=== PATIENT | female | born 1985 | race Caucasian/White ===

== ENCOUNTER 2022-01-30 13:21 | Emergency (ER) | payer OTHER ==
[2022-01-30 13:48] LABS: BILIRUBIN,URINE NEGATIVE (NEGATIVE); GLUCOSE, URINE (UA) NEGATIVE (NEGATIVE); KETONES,URINE (UA) NEGATIVE (NEGATIVE); LEUKOCYTE ESTERASE, URINE NEGATIVE (NEGATIVE); NITRITE,URINE NEGATIVE (NEGATIVE); OCCULT BLOOD,URINE NEGATIVE (NEGATIVE); PROTEIN,URINE NEGATIVE (NEGATIVE); UROBILINOGEN,URINE 0.2 (NORMAL) E.U./dL (NORMAL)
[2022-01-30 13:50] LABS: CLARITY,URINE CLEAR (CLEAR); HCG UR QUAL NEGATIVE
[2022-01-30 14:00] LABS: BASOPHILS # (AUTO) 0.1 10^3/uL (0.0-0.1); BASOPHILS % (AUTO) 0.8 %; EOSINOPHILS % (AUTO) 0.3 %; LYMPHOCYTES # (AUTO) 1.8 10^3/uL (1.5-3.5); LYMPHOCYTES % (AUTO) 23.5 %; MEAN CORPUSCULAR HGB CONC 30.3 g/dL (32.0-36.0); MEAN CORPUSCULAR VOLUME 72.7 fL (81.0-99.0); MEAN PLATELET VOLUME 10.6 fL (7.9-10.8); MONOCYTES # (AUTO) 0.5 10^3/uL (0.0-1.0); MONOCYTES % (AUTO) 6.8 %; NEUTROPHILS # (AUTO) 5.3 10^3/uL (1.5-6.6); NEUTROPHILS % (AUTO) 68.3 %; PLT - PLATELET COUNT 326 10^3/uL (130-450); RED BLOOD COUNT 4.54 10^6/uL (4.20-5.40); RED CELL DISTRIBUTION WIDTH 17.6 % (12.0-15.0); WHITE BLOOD COUNT 7.8 x10^3/uL (4.8-10.8)
[2022-01-30 14:10] LABS: ALBUMIN 4.5 g/dL (3.2-5.5); ALBUMIN/GLOBULIN RATIO 1.3 (1.0-2.2); BILIRUBIN,TOTAL 0.6 mg/dL (0.2-1.0); CREATININE 0.7 mg/dL (0.4-1.0); POTASSIUM 3.9 mmol/L (3.5-5.0)
[2022-01-30 16:30] VITALS: BP 124/61
--- NOTE | 2022-01-30 17:34 | ED Physician Documentation ---
History of Present Illness - Stated complaint Stated Complaint: LT SIDE PX - Chief complaint Chief Complaint: Abd Pain - Additonal information Additional information: 36-year-old female presents emergency department for evaluation of about 1 month left lower back pain. She endorses pain that sometimes radiates into the leg. No fevers, falls or trauma. No saddle anesthesia loss of bowel or bladder function. She typically takes Tylenol which helps but today it was less effective thus she presents here. My history is different than the triage note which indicates that the patient was reporting abdominal pain not back pain. She denies any abdominal pain for me Review of Systems Constitutional: reports: Reviewed and negative Ears: reports: Reviewed and negative Throat: reports: Reviewed and negative Cardiac: reports: Reviewed and negative Respiratory: reports: Reviewed and negative Skin: reports: Reviewed and negative Musculoskeletal: reports: Back pain Neurologic: reports: Reviewed and negative Psychiatric: reports: Reviewed and negative Endocrine: reports: Reviewed and negative PD PAST MEDICAL HISTORY - Past Medical History Past Medical History: Yes - Allergies Allergies/Adverse Reactions: Allergies Allergy/AdvReac Type Severity Reaction Status Date / Time No Known Drug Allergies Allergy Verified 01/30/22 13:29 - Social History Does the pt smoke?: No Smoking Status: Never smoker Does the pt drink ETOH?: Yes Does the pt have substance abuse?: No - Immunizations Immunizations are current?: Yes - POLST Patient has POLST: No PD ED PE NORMAL - General General: Alert and oriented X 3, No acute distress - HEENT HEENT: Atraumatic - Neck Neck: Supple, no meningeal sign - Cardiac Cardiac: RRR, No murmur - Respiratory Respiratory: No respiratory distress, Clear bilaterally - Abdomen Abdomen: Normal bowel sounds, Soft, Non tender - Back Back: No CVA TTP, No spinal TTP, Other (Tenderness in the lower left SI region. Motor strength 5 of 5 bilateral lower extremities at hips, knees and ankles. No paresthesias. 2+ patellar reflexes. Normal gait. Positive straight leg exam left leg.) Results - Vitals Vitals: Vital Signs - 24 hr 01/30/22 01/30/22 13:25 16:29 Temperature 36.5 C 36.4 C L Heart Rate 72 77 Respiratory 16 16 Rate Blood Pressure 126/66 124/61 O2 Saturation 100 100 Oxygen O2 Source Room air - Labs Labs: Laboratory Tests 01/30/22 01/30/2222 13:40 13:54 13:54 WBC 7.8 RBC 4.54 Hgb 10.0 L Hct 33.0 L MCV 72.7 L MCH 22.0 L MCHC 30.3 L RDW 17.6 H Plt Count 326 MPV 10.6 Neut # (Auto) 5.3 Lymph # (Auto) 1.8 [place] # (Auto) 0.5 Eos # (Auto) 0.0 Baso # (Auto) 0.1 Absolute Nucleated RBC 0.00 Nucleated RBC % 0.0 Sodium 139 Potassium 3.9 Chloride 103 Carbon Dioxide 27 Anion Gap 9.0 BUN 11 Creatinine 0.7 Estimated GFR (MDRD) 94 Glucose 97 Calcium 10.0 Total Bilirubin 0.6 AST 18 ALT 14 Alkaline Phosphatase 41 L Total Protein 8.0 Albumin 4.5 Globulin 3.5 Albumin/Globulin Ratio 1.3 Lipase 35 Urine Color YELLOW Urine Clarity CLEAR Urine pH 6.0 Ur Specific [place] <=1.005 Urine Protein NEGATIVE Urine Glucose (UA) NEGATIVE Urine Ketones NEGATIVE Urine Occult Blood NEGATIVE Urine Nitrite NEGATIVE Urine Bilirubin NEGATIVE Urine Urobilinogen 0.2 (NORMAL) Ur Leukocyte Esterase NEGATIVE Ur Microscopic Review NOT INDICATED Urine Culture Comments NOT INDICATED Urine HCG, Qual NEGATIVE PD MEDICAL DECISION MAKING - ED course Complexity details: reviewed results, re-evaluated patient, considered differential, d/w patient ED course: Well-appearing 28-year-old female presents emergency department for evaluation of intermittent left low back pain that has typically responded to Tylenol But it was less effective today. Her exam is very reassuring. She has preserved motor strength reflexes and function. No red flags. She did have a positive straight leg exam making me suspicious for sciatica. Given this I am recommending Tylenol sciatica exercises as well as follow-up with primary care doctor for consideration of referral to PT. I did not elicit any abdominal flank or CVA tenderness. Her screening labs are essentially unremarkable. Emergent and worrisome return precautions discussed Departure - Departure Disposition: 01 Home, Self Care Clinical Impression: Left-sided low back pain with sciatica Qualifiers: Chronicity: acute Sciatica laterality: sciatica of left side Qualified Code(s): M54.42 - Lumbago with sciatica, left side Condition: Stable Record reviewed to determine appropriate education?: Yes Instructions: ED Sciatica Comments: You are seen today for pain in the left lower portion of your back that has come and gone for about 1 month. As we discussed at the bedside your history and exam is most consistent with sciatica. I do recommend that you have very close follow-up with your primary care doctor for consideration of referral to physical therapy. In general sciatica will respond well to medications like ibuprofen. Therefore I do recommend you take 600 mg of ibuprofen with food once or twice daily for your back pain. Please google sciatica stretching exercises. Many people will find relief of the pain by doing these stretches. If at any point you find that you have numbness or weakness in the leg, lose control of your bowel or bladder function or have numbness in your genital area then please return immediately to the ER for second evaluation.
== END 2022-01-30 17:45 | disposition home or self-care (01) ==
LOC: ED 13:21
DX: M54.42 Lumbago with sciatica, left side (principal)
CPT/HCPCS: 36415; 80053; 81001; 81003; 81025; 83690; 85025; 87086; 99283

== ENCOUNTER 2022-02-04 | Emergency (ER) | payer OTHER ==
[2022-02-04 00:32] LABS: BASOPHILS # (AUTO) 0.1 10^3/uL (0.0-0.1); BASOPHILS % (AUTO) 0.7 %; EOSINOPHILS # (AUTO) 0.1 10^3/uL (0.0-0.7); EOSINOPHILS % (AUTO) 0.7 %; HCT - HEMATOCRIT 32.3 % (37.0-47.0); HGB - HEMOGLOBIN 9.6 g/dL (12.0-16.0); LYMPHOCYTES # (AUTO) 2.4 10^3/uL (1.5-3.5); MEAN CORPUSCULAR HEMOGLOBIN 21.8 pg (27.0-31.0); MEAN CORPUSCULAR HGB CONC 29.7 g/dL (32.0-36.0); MEAN CORPUSCULAR VOLUME 73.4 fL (81.0-99.0); MEAN PLATELET VOLUME 11.1 fL (7.9-10.8); MONOCYTES # (AUTO) 0.6 10^3/uL (0.0-1.0); MONOCYTES % (AUTO) 8.4 %; NEUTROPHILS # (AUTO) 3.9 10^3/uL (1.5-6.6); NEUTROPHILS % (AUTO) 55.9 %; PLT - PLATELET COUNT 286 10^3/uL (130-450); RED CELL DISTRIBUTION WIDTH 17.5 % (12.0-15.0)
[2022-02-04 00:38] LABS: BILIRUBIN,URINE NEGATIVE (NEGATIVE); GLUCOSE, URINE (UA) NEGATIVE (NEGATIVE); KETONES,URINE (UA) NEGATIVE (NEGATIVE); LEUKOCYTE ESTERASE, URINE NEGATIVE (NEGATIVE); NITRITE,URINE NEGATIVE (NEGATIVE); OCCULT BLOOD,URINE TRACE-INTA (NEGATIVE); PROTEIN,URINE NEGATIVE (NEGATIVE); UROBILINOGEN,URINE 0.2 (NORMAL) E.U./dL (NORMAL)
[2022-02-04 00:39] LABS: CLARITY,URINE CLEAR (CLEAR)
[2022-02-04 00:41] LABS: HCG UR QUAL NEGATIVE
[2022-02-04 00:45] LABS: ALBUMIN 4.4 g/dL (3.2-5.5); ALBUMIN/GLOBULIN RATIO 1.5 (1.0-2.2); BILIRUBIN,TOTAL 0.3 mg/dL (0.2-1.0); CALCIUM 9.6 mg/dL (8.5-10.3); CREATININE 0.8 mg/dL (0.4-1.0); POTASSIUM 3.4 mmol/L (3.5-5.0); TOTAL PROTEIN 7.4 g/dL (6.7-8.2)
[2022-02-04] MEDS ORDERED: KETOROLAC 30 MG/ML VIAL IVP STA (01:45)
[2022-02-04] MEDS ORDERED: TAMSULOSIN 0.4 MG CAPSULE PO STA (03:04)
--- NOTE | 2022-02-04 03:07 | ED Physician Documentation ---
PD HPI ABD PAIN - Stated complaint Stated Complaint: R BACK/ABD PX - Chief complaint Chief Complaint: Abd Pain - Additional information Additional information: Patient is a 37-year-old female presenting to the emergency department with left-sided low back and flank pain. Seen here 01/30. At that time was having acute onset of pain radiating down the left leg. Diagnosed with sciatica. Reports has been having persistent pain that now radiates around the front of her abdomen and radiates down into her groin. Reports frequent urination but denies any blood in urine. Denies any known history kidney stone. Denies for any fever, chills, chest pain, shortness of breath, saddle paresthesias, Incontinence of urine or stool or weakness in her lower extremities. Review of Systems Ten Systems: 10 systems reviewed and negative Constitutional: denies: Fever Eyes: denies: Loss of vision Ears: denies: Loss of hearing Nose: denies: Rhinorrhea / runny nose Throat: denies: Dental pain / toothache Cardiac: denies: Chest pain / pressure Respiratory: denies: Dyspnea GI: denies: Abdominal Pain : reports: Frequency. denies: Dysuria, Hesitancy, Unable to Void, Incontinent, Hematuria, Discharge Musculoskeletal: reports: Back pain PD PAST MEDICAL HISTORY - Past Medical History Past Medical History: Yes - Past Surgical History Past Surgical History: Yes HEENT: Tonsil/Adenoidectomy - Present Medications Home Medications: Ambulatory Orders Medication Instructions Recorded Confirmed Acetaminophen [Acetaminophen Extra 500 mg PO Q8HR #30 tablet 02/04/22 Strength] Ibuprofen [Motrin] 1 tablet PO Q8H PRN #30 tablet 02/04/22 - Allergies Allergies/Adverse Reactions: Allergies Allergy/AdvReac Type Severity Reaction Status Date / Time No Known Drug Allergies Allergy Verified 02/04/22 00:18 - Social History Does the pt smoke?: No Smoking Status: Never smoker Does the pt drink ETOH?: Yes Does the pt have substance abuse?: No - Immunizations Immunizations are current?: Yes - POLST Patient has POLST: No PD ED PE NORMAL - Vitals Vital signs reviewed: Yes - General General: Alert and oriented X 3 - HEENT HEENT: Atraumatic, PERRL, EOMI, Ears normal - Neck Neck: Supple, no meningeal sign - Cardiac Cardiac: RRR, No gallop - Respiratory Respiratory: No respiratory distress, Clear bilaterally - Abdomen Abdomen: Normal bowel sounds, Non tender, Other (Negative for CVA tenderness.) - Back Back: No CVA TTP, No spinal TTP, Other (Negative straight leg raise bilaterally.) Results - Vitals Vitals: Vital Signs - 24 hr 02/04/22 02/04/22 02/04/22 00:14 01:50 02:08 Temperature 36.5 C 37.0 C Heart Rate 82 93 82 Respiratory 16 16 16 Rate Blood Pressure 129/76 138/85 H 103/86 H O2 Saturation 100 100 100 02/04/22 03:19 Temperature 36.9 C Heart Rate 71 Respiratory 16 Rate Blood Pressure 118/79 O2 Saturation 100 Oxygen O2 Source Room air - Labs Labs: Laboratory Tests 02/04/22 02/04/22 02/04/22 00:26 00:26 00:27 WBC 7.0 RBC 4.40 Hgb 9.6 L Hct 32.3 L MCV 73.4 L MCH 21.8 L MCHC 29.7 L RDW 17.5 H Plt Count 286 MPV 11.1 H Neut # (Auto) 3.9 Lymph # (Auto) 2.4 [place] # (Auto) 0.6 Eos # (Auto) 0.1 Baso # (Auto) 0.1 Absolute Nucleated RBC 0.00 Nucleated RBC % 0.0 Sodium Potassium Chloride Carbon Dioxide Anion Gap BUN Creatinine Estimated GFR (MDRD) Glucose Calcium Total Bilirubin AST ALT Alkaline Phosphatase Total Protein Albumin Globulin Albumin/Globulin Ratio Lipase Urine Color YELLOW Urine Clarity CLEAR Urine pH 6.0 Ur Specific [place] 1.010 Urine Protein NEGATIVE Urine Glucose (UA) NEGATIVE Urine Ketones NEGATIVE Urine Occult Blood TRACE-INTA Urine Nitrite NEGATIVE Urine Bilirubin NEGATIVE Urine Urobilinogen 0.2 (NORMAL) Ur Leukocyte Esterase NEGATIVE Ur Microscopic Review NOT INDICATED Urine Culture Comments NOT INDICATED Urine HCG, Qual NEGATIVE 02/04/22 00:27 WBC RBC Hgb Hct MCV MCH MCHC RDW Plt Count MPV Neut # (Auto) Lymph # (Auto) [place] # (Auto) Eos # (Auto) Baso # (Auto) Absolute Nucleated RBC Nucleated RBC % Sodium 137 Potassium 3.4 L Chloride 104 Carbon Dioxide 26 Anion Gap 7.0 BUN 15 Creatinine 0.8 Estimated GFR (MDRD) 80 L Glucose 98 Calcium 9.6 Total Bilirubin 0.3 AST 20 ALT 17 Alkaline Phosphatase 53 Total Protein 7.4 Albumin 4.4 Globulin 3.0 Albumin/Globulin Ratio 1.5 Lipase 38 Urine Color Urine Clarity Urine pH Ur Specific [place] Urine Protein Urine Glucose (UA) Urine Ketones Urine Occult Blood Urine Nitrite Urine Bilirubin Urine Urobilinogen Ur Leukocyte Esterase Ur Microscopic Review Urine Culture Comments Urine HCG, Qual PD MEDICAL DECISION MAKING - ED course Complexity details: reviewed results ED course: Patient is 37-year-old female presenting to the emergency department with left- sided flank pain. Afebrile, hemodynamic stable on arrival to the emergency department. No CVA tenderness. No tenderness to palpation along the lumbar thoracic spine. Was unable to elicit classic sciatica symptoms with straight leg raise. Comprehensive labs obtained demonstrated generally normal results unchanged from her previous ER evaluation. Given that her pain is now radiating down into her groin I did obtain a noncontrast CT of the abdomen pelvis which demonstrated nonobstructing left-sided kidney stones as well as a small calcification likely now in the urinary bladder. Patient was given a dose of Toradol in the emergency department and on reevaluation after returning from CT reported that her symptoms had resolved. I think that it is very likely that she has been suffering from nephrolithiasis and is now passed this stone. I will discharge at this time with instructions for regular alternating Motrin and Tylenol at home for symptomatic management. Will encourage careful follow- up with primary care. Otherwise clear return precautions and follow-up instructions given prior to discharge. Departure - Departure Disposition: 01 Home, Self Care Clinical Impression: Flank pain Prescriptions: Acetaminophen [Acetaminophen Extra Strength] 500 mg PO Q8HR #30 tablet Ibuprofen [Motrin] 1 tablet PO Q8H PRN #30 tablet PRN Reason: PAIN &/OR FEVER Comments: Thank you for allowing us to care for you today at [facility]. In the emergency department this evening you were evaluated for any possible life-threatening medical emergency. I am concerned that the cause of your symptoms may be due to a kidney stone which is either passed recently or may be about to pass. The remainder of your tests are all very reassuring. I do appreciate your patience with us this evening. Formal reads from our evening radiologist are often delayed however I have asked them to review your CT scan. This report should be available later on this morning. As we discussed I like you to drink plenty of fluids over the course of the next few days. Ideally he will be having clear or nearly clear urination every 2-4 hours while awake. I recommend regular alternating doses of Tylenol and Motrin. A regimen to consider is 500 mg of Tylenol to start with, alternating with 800 mg of Motrin every 4 hours while awake. Please make a follow-up appointment with your primary care doctor as soon as possible. If it anytime you have any new or worsening symptoms please not hesitate to return to the emergency department. Discharge Date/Time: 02/04/22 03:22
[2022-02-04 03:20] VITALS: BP 118/79
--- NOTE | 2022-02-04 08:25 | CT Report ---
PROCEDURE: Abdomen/Pelvis WO INDICATIONS: left flank pain TECHNIQUE: Noncontrast 5 mm thick sections acquired from the diaphragms to the symphysis. 5 mm coronal and sagi ttal reformats were then performed. For radiation dose reduction, the following was used: automated exposure control, adjustment of mA and/or kV according to patient size. COMPARISON: None. FINDINGS: Image quality: Excellent. ABDOMEN: Lung bases: Lung bases are clear. Heart size is normal. Solid organs: Liver and spleen are normal in size. Gallbladder is normal Pancreas is normal in con tours. No adrenal nodules. Kidneys are normal in size, without hydronephrosis. There are punctate calcifications in left kidney compatible with nonobstructive stones. 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 Peritoneum and bowel: Unenhanced bowel loops demonstrate normal wall thickness and caliber. There i s a large amount of stool in colon. No free fluid or air. Nodes and vessels: No retroperitoneal or mesenteric adenopathy by size criteria. Aorta and inferior vena cava are normal in caliber. Miscellaneous: No ventral hernias. PELVIS: Genitourinary: Calcification in the left pelvis is most likely a phlebolith. Bladder wall thickness is normal. Uterus and ovaries are unremarkable. Miscellaneous: No inguinal hernias or adenopathy. Bones: No suspicious bony lesions. No vertebral body compression fractures. IMPRESSION: 1. There are nonobstructive left renal calculi. No hydronephrosis. 2. 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 3. A large amount of stool in colon. No significant discrepancy with the preliminary interpretation. Reviewed by: Knadi Rincon MD on 02/04/2022 8:24 AM PDT Approved by: Kandi Rincon MD on 02/04/2022 8:24 AM PDT Station ID: [id number]
== END 2022-02-04 03:22 | disposition home or self-care (01) ==
LOC: ED
DX: N20.0 Calculus of kidney (principal); R10.9 Unspecified abdominal pain
CPT/HCPCS: 36415; 74176; 80053; 81003; 81025; 83690; 85025; 99284; A9270; 81001; 87086

== ENCOUNTER 2022-07-10 17:12 | Emergency (ER) | payer OTHER ==
[2022-07-10 17:36] LABS: BILIRUBIN,URINE NEGATIVE (NEGATIVE); GLUCOSE, URINE (UA) NEGATIVE (NEGATIVE); KETONES,URINE (UA) NEGATIVE (NEGATIVE); LEUKOCYTE ESTERASE, URINE NEGATIVE (NEGATIVE); NITRITE,URINE NEGATIVE (NEGATIVE); OCCULT BLOOD,URINE TRACE-INTA (NEGATIVE); PH,URINE 6.5 PH (5.0-7.5); PROTEIN,URINE NEGATIVE (NEGATIVE); UROBILINOGEN,URINE 0.2 (NORMAL) E.U./dL (NORMAL)
[2022-07-10 17:37] LABS: BASOPHILS # (AUTO) 0.1 10^3/uL (0.0-0.1); BASOPHILS % (AUTO) 0.6 %; EOSINOPHILS % (AUTO) 0.4 %; HCT - HEMATOCRIT 33.2 % (37.0-47.0); HGB - HEMOGLOBIN 9.6 g/dL (12.0-16.0); LYMPHOCYTES # (AUTO) 1.8 10^3/uL (1.5-3.5); MEAN CORPUSCULAR HEMOGLOBIN 21.2 pg (27.0-31.0); MEAN CORPUSCULAR HGB CONC 28.9 g/dL (32.0-36.0); MEAN CORPUSCULAR VOLUME 73.5 fL (81.0-99.0); MEAN PLATELET VOLUME 11.4 fL (7.9-10.8); MONOCYTES # (AUTO) 0.5 10^3/uL (0.0-1.0); MONOCYTES % (AUTO) 5.7 %; NEUTROPHILS # (AUTO) 6.6 10^3/uL (1.5-6.6); PLT - PLATELET COUNT 279 10^3/uL (130-450); RED BLOOD COUNT 4.52 10^6/uL (4.20-5.40)
[2022-07-10 17:38] LABS: CLARITY,URINE CLEAR (CLEAR); HCG UR QUAL NEGATIVE
[2022-07-10 17:50] LABS: ALBUMIN 4.3 g/dL (3.2-5.5); ALBUMIN/GLOBULIN RATIO 1.3 (1.0-2.2); BILIRUBIN,TOTAL 0.6 mg/dL (0.2-1.0); CALCIUM 9.5 mg/dL (8.5-10.3); CREATININE 0.7 mg/dL (0.4-1.0); POTASSIUM 3.8 mmol/L (3.5-5.0); TOTAL PROTEIN 7.7 g/dL (6.7-8.2)
--- NOTE | 2022-07-10 17:53 | ED Physician Documentation ---
PD HPI ABD PAIN - Stated complaint Stated Complaint: ABD PX - Chief complaint Chief Complaint: Abd Pain - History obtained from History obtained from: Patient - Additional information Additional information: Previously healthy 37-year-old woman with history of D&C in 2003, otherwise healthy presents with 2 months of lower abdominal pain, cramping and bloating. She states that every night she develops bloating, lower abdominal cramping and diarrhea as well as gas that smells foul. Imodium is helpful. Prior to 2 months ago she had never had anything like this before. No history of colonoscopy. Review of Systems Constitutional: denies: Fever, Chills GI: reports: Abdominal Pain, Nausea, Diarrhea. denies: Vomiting, Constipation, Hematemesis, Bloody / black stool PD PAST MEDICAL HISTORY - Past Surgical History Past Surgical History: Yes HEENT: Tonsil/Adenoidectomy - Present Medications Home Medications: Ambulatory Orders Medication Instructions Recorded Confirmed Acetaminophen [Acetaminophen Extra 500 mg PO Q8HR #30 tablet 02/04/22 Strength] Ibuprofen [Motrin] 1 tablet PO Q8H PRN #30 tablet 02/04/22 Dicyclomine [Bentyl] 1 - 2 tab PO QID PRN #20 cap 07/10/22 - Allergies Allergies/Adverse Reactions: Allergies Allergy/AdvReac Type Severity Reaction Status Date / Time No Known Drug Allergies Allergy Verified 02/04/22 00:18 - Social History Does the pt smoke?: No Smoking Status: Never smoker Does the pt drink ETOH?: Yes Does the pt have substance abuse?: No - Immunizations Immunizations are current?: Yes - POLST Patient has POLST: No PD ED PE NORMAL - Vitals Vital signs reviewed: Yes - General General: Alert and oriented X 3, No acute distress - Cardiac Cardiac: RRR, No murmur - Respiratory Respiratory: No respiratory distress, Clear bilaterally - Abdomen Abdomen: Normal bowel sounds, Soft, Non tender, Non distended, No organomegaly - Derm Derm: Normal color, Warm and dry - Extremities Extremities: No edema, No calf tenderness / cord - Neuro Neuro: Alert and oriented X 3, Normal speech Eye Opening: Spontaneous Motor: Obeys Commands Verbal: Oriented GCS Score: 15 - Psych Psych: Normal mood, Normal affect Results - Vitals Vitals: Vital Signs - 24 hr 07/10/22 17:17 Temperature 37.2 C Heart Rate 72 Respiratory 16 Rate Blood Pressure 141/77 H O2 Saturation 100 Oxygen O2 Source Room air - Labs Labs: Laboratory Tests 07/10/22 07/10/22 07/10/22 17:28 17:32 17:32 WBC 9.0 RBC 4.52 Hgb 9.6 L Hct 33.2 L MCV 73.5 L MCH 21.2 L MCHC 28.9 L RDW 19.0 H Plt Count 279 MPV 11.4 H Neut # (Auto) 6.6 Lymph # (Auto) 1.8 [place] # (Auto) 0.5 Eos # (Auto) 0.0 Baso # (Auto) 0.1 Absolute Nucleated RBC 0.00 Nucleated RBC % 0.0 Manual Slide Review Indicated Platelet Estimate NORMAL (130-450,000) Platelet Morphology NORMAL APPEARANCE RBC Morph Micro Appear 1+ OVALOCYTES Sodium 138 Potassium 3.8 Chloride 103 Carbon Dioxide 27 Anion Gap 8.0 BUN 11 Creatinine 0.7 Estimated GFR (MDRD) 93 Glucose 98 Calcium 9.5 Total Bilirubin 0.6 AST 20 ALT 15 Alkaline Phosphatase 41 L Total Protein 7.7 Albumin 4.3 Globulin 3.4 Albumin/Globulin Ratio 1.3 Lipase 38 Urine Color YELLOW Urine Clarity CLEAR Urine pH 6.5 Ur Specific [place] 1.010 Urine Protein NEGATIVE Urine Glucose (UA) NEGATIVE Urine Ketones NEGATIVE Urine Occult Blood TRACE-INTA Urine Nitrite NEGATIVE Urine Bilirubin NEGATIVE Urine Urobilinogen 0.2 (NORMAL) Ur Leukocyte Esterase NEGATIVE Ur Microscopic Review NOT INDICATED Urine Culture Comments NOT INDICATED Urine HCG, Qual NEGATIVE - Rads (name of study) CT abdomen pelvis with IV contrast is unremarkable Radiology: Final report received, EMP read indepedently PD Medical Decision Making - ED course Complexity details: reviewed results (CBC is reviewed, she has a microcytic anemia with a hemoglobin exactly the same as it was 4 months ago on prior labs. Comprehensive metabolic panel was reviewed and normal. Urinalysis reviewed and normal. Urine test is negative.) ED course: 37-year-old woman presents with 2 months of lower abdominal pain, diarrhea, bloating, cramping. Differential diagnosis includes irritable bowel syndrome, inflammatory bowel disease, tumor, small bowel overgrowth. Less likely would be a surgical emergency given the time course and benign exam. Departure - Departure Disposition: 01 Home, Self Care Clinical Impression: Diarrhea Qualifiers: Diarrhea type: unspecified type Qualified Code(s): R19.7 - Diarrhea, unspecified Abdominal pain Qualifiers: Abdominal location: lower abdomen, unspecified Qualified Code(s): R10.30 - Lower abdominal pain, unspecified Condition: Good Record reviewed to determine appropriate education?: Yes Instructions: ED Abdominal Pain Female Non-Specific Abdominal Pain Prescriptions: Dicyclomine [Bentyl] 1 - 2 tab PO QID PRN #20 cap PRN Reason: Abdominal Pain Comments: Your CAT scan and labs are normal. With the exception of moderate anemia which has been chronic over prior labs that we have seen. You may want to take an [id number] iron supplement as the pattern is consistent with iron deficiency which is common in young women. Given your symptoms I would recommend starting with a "low FODMAP diet" you can easily google what this is, but basically it cuts out carbohydrates that cause diarrhea cramping and bloating. In the meantime I am trialing a antispasmodic agent known as dicyclomine/Bentyl. Call your doctor to arrange a follow-up appointment, make the next available appointment. In the interim, return anytime if worse or if new symptoms develop.
[2022-07-10 18:07] LABS: PLATELET ESTIMATE, MANUAL NORMAL (130-450,000) (NORMAL); PLATELET MORPHOLOGY NORMAL APPEARANCE (NORMAL); SLIDE REVIEW? Indicated
[2022-07-10] MEDS ORDERED: iohexoL-300 100 ML VIAL ONE (18:17)
--- NOTE | 2022-07-10 19:12 | CT Report ---
PROCEDURE: ABDOMEN/PELVIS W INDICATIONS: iv only, low abd pain CONTRAST: 100mL Omni 300 TECHNIQUE: After the administration of contrast, 5 mm thick sections acquired from the diaphragms to the symphy sis. 5 mm thick coronal and sagittal reformats were acquired. For radiation dose reduction, the fol lowing was used: automated exposure control, adjustment of mA and/or kV according to patient size. COMPARISON: None. FINDINGS: Image quality: Excellent. ABDOMEN: Lung bases: Lung bases are clear. Heart size is normal. Solid organs: Liver and spleen are normal in size and enhancement. Gallbladder is normal. Biliary system is non dilated. Pancreas enhances normally. No adrenal nodules. Kidneys demonstrate normal size and enhancement, without hydronephrosis. Peritoneum and bowel: Bowel loops demonstrate normal wall thickness and caliber. No free fluid or a ir. Nodes and vessels: No retroperitoneal or mesenteric adenopathy by size criteria. Aorta and inferior vena cava are normal in size. Miscellaneous: No ventral hernias. PELVIS: Genitourinary: Bladder wall thickness is normal. Miscellaneous: No inguinal hernias or adenopathy. Bones: No suspicious bony lesions. No vertebral body compression fractures. IMPRESSION: No acute abdominal or pelvic abnormality. Reviewed by: Doc Gaytan on 07/10/2022 7:10 PM PST Approved by: Doc Gaytan on 07/10/2022 7:10 PM PST Station ID: [id number]
[2022-07-10 19:23] VITALS: BP 131/83
[2022-07-10] MEDS ORDERED: iohexoL-300 100 ML VIAL IVP ONE (19:37)
== END 2022-07-10 19:27 | disposition home or self-care (01) ==
LOC: ED 17:12
DX: R10.30 Lower abdominal pain, unspecified (principal); R19.7 Diarrhea, unspecified
CPT/HCPCS: 36415; 74177; 80053; 81003; 81025; 83690; 85025; 99284; Q9967; 81001; 87086

== ENCOUNTER 2022-11-08 07:33 | Emergency (ER) | payer OTHER ==
[2022-11-08 08:13] LABS: RAPID STREP SCREEN Negative (Negative)
--- NOTE | 2022-11-08 08:13 | ED Physician Documentation ---
PD HPI URI - Stated complaint Stated Complaint: FEVER,COUGH - Chief complaint Chief Complaint: Heent - History obtained from History obtained from: Patient - Additional information Additional information: Patient is a 37-year-old female with no significant prior medical history presenting for evaluation of fever, nonproductive cough and sore throat for the past 4 days. She reports a Tmax of 102 which was present this morning. She took Tylenol at 5 AM. She reports a sore throat and cough without any phlegm. Her son was ill last week with pinkeye and cough as well as congestion but he has recovered. She did take a home COVID test which was negative.She denies recent travel. She denies chest pain or feeling short of breath. Denies abdominal symptoms or concerns for . Review of Systems Constitutional: reports: Fever Throat: reports: Sore throat Cardiac: denies: Chest pain / pressure Respiratory: reports: Cough. denies: Dyspnea GI: denies: Abdominal Pain, Vomiting Musculoskeletal: denies: Extremity swelling PD PAST MEDICAL HISTORY - Past Surgical History Past Surgical History: Yes HEENT: Tonsil/Adenoidectomy - Present Medications Home Medications: Ambulatory Orders Medication Instructions Recorded Confirmed Acetaminophen [Acetaminophen Extra 500 mg PO Q8HR #30 tablet 02/04/22 Strength] Ibuprofen [Motrin] 1 tablet PO Q8H PRN #30 tablet 02/04/22 Dicyclomine [Bentyl] 1 - 2 tab PO QID PRN #20 cap 07/10/22 - Allergies Allergies/Adverse Reactions: Allergies Allergy/AdvReac Type Severity Reaction Status Date / Time No Known Drug Allergies Allergy Verified 02/04/22 00:18 - Social History Does the pt smoke?: No Smoking Status: Never smoker Does the pt drink ETOH?: Yes Does the pt have substance abuse?: No - Immunizations Immunizations are current?: Yes - POLST Patient has POLST: No PD ED PE NORMAL - General General: Alert and oriented X 3, No acute distress, Well developed/nourished - HEENT HEENT: Atraumatic, Moist mucous membranes, Pharynx benign (No oral swelling, erythema or exudate) - Neck Neck: Supple, no meningeal sign, No bony TTP - Cardiac Cardiac: RRR, No murmur - Respiratory Respiratory: No respiratory distress, Clear bilaterally - Abdomen Abdomen: Soft, Non tender - Derm Derm: Warm and dry - Extremities Extremities: No edema, No calf tenderness / cord - Neuro Neuro: Normal speech Results - Vitals Vitals: Vital Signs - 24 hr 11/08/22 11/08/22 07:45 09:03 Temperature 37.4 C 36.9 C Heart Rate 127 H 85 Respiratory 18 18 Rate Blood Pressure 119/88 H 118/75 O2 Saturation 99 100 Oxygen O2 Source Room air - Labs Labs: Laboratory Tests 11/08/22 11/08/22 07:53 07:53 Nasal Adenovirus (PCR) NOT DETECTED Nasal B. parapertussis DNA (PCR) NOT DETECTED Nasal Coronavir 229E PCR NOT DETECTED Nasal Coronavir HKU1 PCR NOT DETECTED Nasal Coronavir NL63 PCR NOT DETECTED Nasal Coronavir OC43 PCR NOT DETECTED Nasal Enterovir/Rhinovir PCR DETECTED A Nasal Influenza B PCR NOT DETECTED Nasal Influenza A PCR NOT DETECTED Nasal Parainfluen 1 PCR NOT DETECTED Nasal Parainfluen 2 PCR NOT DETECTED Nasal Parainfluen 3 PCR NOT DETECTED Nasal Parainfluen 4 PCR NOT DETECTED Nasal RSV (PCR) NOT DETECTED Nasal B.pertussis DNA PCR NOT DETECTED Nasal C.pneumoniae (PCR) NOT DETECTED Frantz Human Metapneumo PCR NOT DETECTED Nasal M.pneumoniae (PCR) NOT DETECTED Nasal SARS-CoV-2 (PCR) NOT DETECTED Group A Strep Rapid Negative PD Medical Decision Making - ED course Complexity details: reviewed results, re-evaluated patient, d/w patient ED course: Patient is a 37-year-old female presenting for evaluation of fever, sore throat and nonproductive cough for 4 days. She is tachycardic on initial vital signs but upon my evaluation appears to have normal heart rate. No chest pain or shortness of breath. No signs of labored breathing. No lower extremity swelling or pain to suggest DVT. Her symptoms do not suggest a PE. Chest x-ray was obtained which I reviewed and see no signs of pneumonia or effusion. Strep swab is negative. Her symptoms are likely viral in nature and she was given a dose of Decadron for her pharyngitis. Respiratory swab did return positive for enterovirus rhinovirus. Patient is counseled on continued supportive care as well as concerning symptoms to return for. Heart rate at discharge is improved. Departure - Departure Disposition: 01 Home, Self Care Clinical Impression: Viral pharyngitis Condition: Stable Instructions: ED Pharyngitis Viral Comments: Your chest x-ray is negative for pneumonia. Your strep test is negative.We do send the strep test for a culture to make sure that there is no infection requiring an antibiotic. However your symptoms are likely related to a viral infection.You will receive a dose of a steroid here which should help with the inflammation and irritation you are feeling in your throat. Please continue with staying hydrated. Your respiratory panel is pending. This will check for COVID, influenza, RSV and a number of other common cold viruses. We will notify you if it is positive for COVID. Otherwise you can check the patient portal for your results. You should quarantine from others until you know your COVID result. Please continue with acetaminophen or ibuprofen as needed for fevers and body aches, plenty of fluids/hydration and rest. Return to the ER with any worsening symptoms such as difficulty breathing or vomiting. Discharge Date/Time: 11/08/22 09:03
--- NOTE | 2022-11-08 08:46 | XRAY Report ---
PROCEDURE: Chest 1 View X-Ray INDICATIONS: cough/fever TECHNIQUE: One view of the chest was acquired. COMPARISON: None. FINDINGS: Surgical changes and devices: None. Lungs and pleura: No pleural effusions or pneumothorax. Lungs are clear. Mediastinum: Mediastinal contours appear normal. Heart size is normal. Bones and chest wall: No suspicious bony lesions. Overlying soft tissues appear unremarkable. IMPRESSION: No acute cardiopulmonary process. Reviewed by: Angela Valenzuela MD on 11/08/2022 8:45 AM PDT Approved by: Angela Valenzuela MD on 11/08/2022 8:45 AM PDT Station ID: [id number]
[2022-11-08] MEDS ORDERED: CHERRY SYRUP 10 ML UDC PO ONE (08:48)
[2022-11-08] MEDS ORDERED: DEXAMETHASONE 10 MG/ML VIAL PO STA (08:48)
[2022-11-08 09:01] LABS: B. PARAPERTUSSIS- RESP PCR PAN NOT DETECTED; B. PERTUSSIS- RESP PCR PANEL NOT DETECTED; C. PNEUMONIAE- RESP PCR PANEL NOT DETECTED; CORONAVIRUS 229E-RESP PCR NOT DETECTED; CORONAVIRUS HKU1-RESP PCR NOT DETECTED; CORONAVIRUS NL63-RESP PCR NOT DETECTED; CORONAVIRUS OC43-RESP PCR NOT DETECTED; HUMAN METAPNEUMOVIRUS NOT DETECTED; INFLUENZA A- RESP PCR PANEL NOT DETECTED; INFLUENZA B - RESP PCR PANEL NOT DETECTED; PARAINFLUENZA VIRUS 1 NOT DETECTED; PARAINFLUENZA VIRUS 2 NOT DETECTED; PARAINFLUENZA VIRUS 3 NOT DETECTED; PARAINFLUENZA VIRUS 4 NOT DETECTED; RHINOVIRUS/ENTEROVIRUS DETECTED; RSV- RESP PCR PANEL NOT DETECTED; SARS-CoV-2 -RESP PCR PANEL NOT DETECTED
[2022-11-08 09:02] LABS: M. PNEUMONIAE- RESP PCR PANEL NOT DETECTED
[2022-11-08 09:04] VITALS: BP 118/75
== END 2022-11-08 09:03 | disposition home or self-care (01) ==
LOC: ED 07:33
DX: J02.9 Acute pharyngitis, unspecified (principal); B34.1 Enterovirus infection, unspecified; Z20.822 Contact with and (suspected) exposure to COVID-19
CPT/HCPCS: 71045; 87070; 87430; 87633; 99283; 99284; A9270

== ENCOUNTER 2022-12-16 10:18 | Emergency (ER) | payer OTHER ==
[2022-12-16 10:29] VITALS: BP 129/86
--- NOTE | 2022-12-16 11:00 | XRAY Report ---
PROCEDURE: Chest 2 View X-Ray INDICATIONS: Chest wall pain TECHNIQUE: 2 views of the chest were acquired. COMPARISON: 11/08/2022. FINDINGS: Surgical changes and devices: None. Lungs and pleura: No pleural effusions or pneumothorax. Lungs are clear. Mediastinum: Mediastinal contours appear normal. Heart size is normal. Bones and chest wall: No suspicious bony lesions. Overlying soft tissues appear unremarkable. IMPRESSION: No acute cardiopulmonary process. Reviewed by: Laith Cordova MD on 12/16/2022 10:59 AM PDT Approved by: Laith Cordova MD on 12/16/2022 10:59 AM PDT Station ID: [id number]
--- NOTE | 2022-12-16 11:16 | ED Physician Documentation ---
History of Present Illness - Stated complaint Stated Complaint: CHEST PX - Chief complaint Chief Complaint: General - History obtained from History obtained from: Patient - Additonal information Additional information: Previously healthy 37-year-old woman with no possibility of has had pleuritic right-sided chest pain for the last 2 days. She has a severe sharp pain that is especially bad if she takes a deep breath. Its not associate with current cough but she did note that she had a couple months worth of cough that cleared up 2 weeks ago. Motrin has been helpful with his pain. No recent travel. Not on control. No pedal edema or calf pain. No history of thromboembolic disease. PD PAST MEDICAL HISTORY - Past Surgical History Past Surgical History: Yes HEENT: Tonsil/Adenoidectomy - Present Medications Home Medications: Ambulatory Orders Medication Instructions Recorded Confirmed Acetaminophen [Acetaminophen Extra 500 mg PO Q8HR #30 tablet 02/04/22 Strength] Ibuprofen [Motrin] 1 tablet PO Q8H PRN #30 tablet 02/04/22 Dicyclomine [Bentyl] 1 - 2 tab PO QID PRN #20 cap 07/10/22 - Allergies Allergies/Adverse Reactions: Allergies Allergy/AdvReac Type Severity Reaction Status Date / Time No Known Drug Allergies Allergy Verified 12/16/22 10:28 - Social History Does the pt smoke?: No Smoking Status: Never smoker Does the pt drink ETOH?: Yes Does the pt have substance abuse?: No - Immunizations Immunizations are current?: Yes - POLST Patient has POLST: No PD ED PE NORMAL - Vitals Vital signs reviewed: Yes - General General: Alert and oriented X 3, Other (She appears uncomfortable with deep breathing but is comfortable with shallow breathing.) - Neck Neck: Supple, no meningeal sign, No bony TTP - Cardiac Cardiac: RRR, No murmur - Respiratory Respiratory: No respiratory distress, Clear bilaterally - Abdomen Abdomen: Non tender - Extremities Extremities: No edema, No calf tenderness / cord - Neuro Neuro: Alert and oriented X 3, Normal speech Results - Vitals Vitals: Vital Signs - 24 hr 12/16/22 10:23 Temperature 36.1 C L Heart Rate 81 Respiratory 16 Rate Blood Pressure 129/86 H O2 Saturation 100 Oxygen O2 Source Room air - EKG (time done) 1046 EKG releavant findings:: EKG personally interpreted by author of this note. Relevant findings are: Rate: Rate (enter#) (72) Rhythm: NSR Converse: Normal Intervals: Normal MN QRS: Normal Ischemia: Normal ST segments - Labs Labs: Laboratory Tests 12/16/22 11:32 D-Dimer 204.2 - Rads (name of study) 2 view chest x-ray is unremarkable Relevant Findings:: Final report received, EMP independent interpretation of test PD Medical Decision Making - ED course ED course: 37-year-old woman with pleuritic chest pain with shortness of breath. Chest x- ray, EKG, and subsequently D-dimer were negative/normal ruling out serious illness. She is getting relief from ibuprofen. Departure - Departure Disposition: Home, Self Care Clinical Impression: Pleuritic chest pain Condition: Good Record reviewed to determine appropriate education?: Yes Instructions: ED Chest Pain Pleurisy Comments: Thankfully there is no sign of severe or serious illness. We have ruled out blood clots heart attack and lung issue. Continue ibuprofen albeit probably had a little lower dose, 400 or 600 mg every 6 hours and add Tylenol 2 regular strength tablets every 6 hours as well. Call your doctor to arrange a follow-up appointment, make the next available appointment. In the interim, return anytime if worse or if new symptoms develop.
== END 2022-12-16 12:32 | disposition home or self-care (01) ==
LOC: ED 10:18
DX: R07.89 Other chest pain (principal)
CPT/HCPCS: 36415; 85379; 93005; 99283; 99284

== ENCOUNTER 2023-01-17 00:19 | Emergency (ER) | payer OTHER ==
--- NOTE | 2023-01-17 00:52 | ED Physician Documentation ---
History of Present Illness - Stated complaint Stated Complaint: ABD PAIN - Chief complaint Chief Complaint: Abd Pain - History obtained from History obtained from: Patient - Additonal information Additional information: 37yF with hx ovarian cysts p/w suprapubic abdominal pain today from 11pm to midnight, resolving after taking ibuprofen and tylenol. patient has been having painful menses and states she thinks she may be about to start her period since she had some brownish discharge today. also with increased urinary frequency. denies fever, back pain , n/v/d PD PAST MEDICAL HISTORY - Past Surgical History Past Surgical History: Yes HEENT: Tonsil/Adenoidectomy - Present Medications Home Medications: Ambulatory Orders Medication Instructions Recorded Confirmed Acetaminophen [Acetaminophen Extra 500 mg PO Q8HR #30 tablet 02/04/22 Strength] Ibuprofen [Motrin] 1 tablet PO Q8H PRN #30 tablet 02/04/22 Dicyclomine [Bentyl] 1 - 2 tab PO QID PRN #20 cap 07/10/22 - Allergies Allergies/Adverse Reactions: Allergies Allergy/AdvReac Type Severity Reaction Status Date / Time No Known Drug Allergies Allergy Verified 01/17/23 00:32 - Social History Does the pt smoke?: No Smoking Status: Never smoker Does the pt drink ETOH?: Yes Does the pt have substance abuse?: No - Immunizations Immunizations are current?: Yes - POLST Patient has POLST: No PD ED PE NORMAL - Vitals Vital signs reviewed: Yes - General General: Alert and oriented X 3, No acute distress, Well developed/nourished - HEENT HEENT: Atraumatic, PERRL, EOMI - Abdomen Abdomen: Non tender, Non distended - Back Back: No CVA TTP - Derm Derm: Normal color, Warm and dry - Extremities Extremities: No deformity, No edema - Neuro Neuro: No motor deficit, No sensory deficit - Psych Psych: Normal mood, Normal affect Results - Vitals Vitals: Vital Signs - 24 hr 01/17/23 00:25 Temperature 36.7 C Heart Rate 93 Respiratory 17 Rate Blood Pressure 129/83 H O2 Saturation 100 Oxygen O2 Source Room air PD Medical Decision Making - ED course ED course: 37yF p/w cramping suprapubic pain, now resolved after taking ibuprofen and tylenol tonight. Low suspicion for torsion or ectopic given pain has resolved. possible this is related to ovarian cyst rupture or cyst enlargement during menses. [facility] but I advised her we will check u/a and hcg and have her f/u with her bobbin painter for outpatient ultrasound. return precautions given. Departure - Departure Clinical Impression: Abdominal pain Condition: Stable Instructions: ED Abdominal Pain Female Non-Specific Abdominal Pain Comments: You were seen in the ED for abdominal pain. Your urine test showed no infection and you are not . Please follow up with your bobbin painter for outpatient ultrasound. You also can come back to the ED if you have new or worsening symptoms and we can do an ultrasound between hours of 6am and midnight M-F.
[2023-01-17 00:54] LABS: BILIRUBIN,URINE NEGATIVE (NEGATIVE); GLUCOSE, URINE (UA) NEGATIVE (NEGATIVE); KETONES,URINE (UA) NEGATIVE (NEGATIVE); LEUKOCYTE ESTERASE, URINE NEGATIVE (NEGATIVE); NITRITE,URINE NEGATIVE (NEGATIVE); OCCULT BLOOD,URINE TRACE-INTA (NEGATIVE); PROTEIN,URINE NEGATIVE (NEGATIVE); UROBILINOGEN,URINE 0.2 (NORMAL) E.U./dL (NORMAL)
[2023-01-17 00:57] LABS: CLARITY,URINE CLEAR (CLEAR)
[2023-01-17 01:00] LABS: BACTERIA,URINE Few /HPF (None Seen); RBC,URINE 0-5 /HPF (0-5); SQUAMOUS EPITHELIAL CELL,UR MOD Squamous (<= Few); WBC,URINE 0-3 /HPF (0-5)
[2023-01-17 01:01] LABS: HCG UR QUAL NEGATIVE; MUCUS,URINE Few Strands
[2023-01-17 01:19] VITALS: BP 124/81
== END 2023-01-17 01:18 | disposition home or self-care (01) ==
LOC: ED 00:19
DX: R10.9 Unspecified abdominal pain (principal)
CPT/HCPCS: 81001; 81025; 87086; 99283; 99284

== ENCOUNTER 2023-01-17 13:10 | Emergency (ER) | payer OTHER ==
[2023-01-17 13:28] VITALS: BP 133/80
--- NOTE | 2023-01-17 15:36 | ED Physician Documentation ---
PD HPI FEMALE - Stated complaint Stated Complaint: F/U ABD PX - Chief complaint Chief Complaint: Abd Pain - History obtained from History obtained from: Patient - History of Present Illness Timing - onset: How many days ago Timing - duration: Days Timing - details: Gradual onset, Still present (less than last night.), Waxing and waning Associated symptoms: Vaginal bleeding (currently on period). No: Fever, Vaginal discharge, Genital sore/lesion Contributing factors: Sexually active. No: Oral contraceptive (she would like to be for regulation of her menses and pain.) Recently seen: Emergency Dept (seen overnight with these symptoms and US deemed appropriate but not availalbe. Shared decison with pt and provider last night for her to discharge and return today for US. Pt states less pain but still some into this morning.) Review of Systems Constitutional: denies: Fever, Chills PD PAST MEDICAL HISTORY - Past Surgical History Past Surgical History: Yes HEENT: Tonsil/Adenoidectomy - Present Medications Home Medications: Ambulatory Orders Medication Instructions Recorded Confirmed Acetaminophen [Acetaminophen Extra 500 mg PO Q8HR #30 tablet 02/04/22 Strength] Ibuprofen [Motrin] 1 tablet PO Q8H PRN #30 tablet 02/04/22 Dicyclomine [Bentyl] 1 - 2 tab PO QID PRN #20 cap 07/10/22 HYDROcod/ACETAM 5/325 [[place] 5/325] 1 ea PO Q6H PRN #14 tablet 01/17/23 Meloxicam [Mobic] 7.5 mg PO BID 10 Days #20 tablet 01/17/23 - Allergies Allergies/Adverse Reactions: Allergies Allergy/AdvReac Type Severity Reaction Status Date / Time No Known Drug Allergies Allergy Verified 01/17/23 13:26 - Social History Does the pt smoke?: No Smoking Status: Never smoker Does the pt drink ETOH?: Yes Does the pt have substance abuse?: No - Immunizations Immunizations are current?: Yes - POLST Patient has POLST: No PD ED PE NORMAL - Vitals Vital signs reviewed: Yes - General General: Alert and oriented X 3, No acute distress, Well developed/nourished - Abdomen Abdomen: Soft, Non tender - Female Female : Deferred Results - Vitals Vitals: Vital Signs - 24 hr 01/17/23 13:23 Temperature 36.4 C L Heart Rate 79 Respiratory 20 Rate Blood Pressure 133/80 H O2 Saturation 100 Oxygen O2 Source Room air - Labs Labs: Laboratory Tests 01/17/23 15:25 C. glabrata (PCR) NEGATIVE C. krusei (PCR) NEGATIVE Ana species DNA NEGATIVE T. vaginalis (PCR) NEGATIVE Bact Vaginosis (PCR) NEGATIVE - Rads (name of study) pelvic US Relevant Findings:: Prelim report reviewed (several follicles with a dominant one seen .No cysts. No free fluid. No acute findings. ), See rad report PD Medical Decision Making - ED course Complexity details: reviewed results, considered differential (patient seen for lower abd/pelvic pain overnight and was discharged with intention of returning this AM for pelvic US. Patient appearing okay generally. ), d/w patient ED course: the patient may benefit improve from OCPs. She has been on two diffferent ones in the past with some side effects. I offered to write script for oral OCP but she prefers to wait until [facility] appt in office (still being scheduled and may not be for monht or so) instead. Can use NSAIDs perimenstrual with pain meds PRN. Departure - Departure Disposition: Home, Self Care Clinical Impression: Lower abdominal pain, Dysmenorrhea Condition: Stable Record reviewed to determine appropriate education?: Yes Instructions: ED Cramping Menstrual Prescriptions: Meloxicam [Mobic] 7.5 mg PO BID 10 Days #20 tablet HYDROcod/ACETAM 5/325 [[place] 5/325] 1 ea PO Q6H PRN #14 tablet PRN Reason: Pain Comments: Your pelvic ultrasound is normal without any cysts or structural abnormalities. Blood flow to both ovaries is good. Oral contraceptives seem like to be appropriate. Follow-up with gynecology in [place] at their earliest appointment. Meanwhile I would suggest doing a different anti-inflammatory. We can try meloxicam twice daily with food starting 3 to 4 days before your expected. And continuing 2 or 3 days after. Add Tylenol if needed for pains or hydrocodone if needed for worse pain. Sent your prescriptions to [facility] pharmacy. Discharge Date/Time: 01/17/23 15:55
--- NOTE | 2023-01-17 16:28 | Ultrasound Report ---
PROCEDURE: Pelvic w/Transvag+Doppler Comp INDICATIONS: pelvic pain, R TECHNIQUE: Real-time scanning was performed of the pelvic organs, with image documentation. Additional endovagi nal scanning was necessary due to incomplete visualization of the adnexal and endometrial structures by transabdominal scanning. Doppler interrogation was performed of the ovaries bilaterally. COMPARISON: None. FINDINGS: Uterus: Uterus is anteverted and normal in size at 8.7 x 4.6 x 5.5 cm. The myometrium is homogeneou s. The endometrium measures 13 mm in combined thickness. Ovaries: The right ovary measures 2.8 x 1.9 x 2.4 cm, with a calculated ovarian volume of 7 cc. The left ovary measures 2.3 x 1.8 x 1.5 cm, with a calculated ovarian volume of 3 cc. Appropriate blood flow to the ovaries with Doppler interrogation. Less than 12 follicles can be seen in each ovary. No adnexal masses are seen. No cystic lesions measuring greater than 3 cm. Other: No pathologic free abdominal or pelvic fluid. IMPRESSION: Normal Doppler flow to the ovaries. Unremarkable pelvic ultrasound. Reviewed by: Richard Brady on 01/17/2023 4:27 PM PDT Approved by: Richard Brady on 01/17/2023 4:27 PM PDT Station ID: [id number]
[2023-01-17 18:50] LABS: BACTERIAL VAGINOSIS DNA NEGATIVE (NEGATIVE); CANDIDA GLABRATA DNA NEGATIVE (NEGATIVE); CANDIDA GROUP DNA NEGATIVE (NEGATIVE); CANDIDA KRUSEI DNA NEGATIVE (NEGATIVE); TRICHOMONAS VAGINALIS DNA NEGATIVE (NEGATIVE)
== END 2023-01-17 15:55 | disposition home or self-care (01) ==
LOC: ED 13:10
DX: R10.30 Lower abdominal pain, unspecified (principal); N94.6 Dysmenorrhea, unspecified
CPT/HCPCS: 81001; 81025; 81514; 87086; 93975; 99283; 99284

== ENCOUNTER 2023-06-25 18:30 | Emergency (ER) | payer OTHER ==
[2023-06-25 18:51] VITALS: O2SAT 100
[2023-06-25 19:07] LABS: BASOPHILS # (AUTO) 0.1 10^3/uL (0.0-0.1); BASOPHILS % (AUTO) 0.5 %; EOSINOPHILS % (AUTO) 0.3 %; HCT - HEMATOCRIT 33.1 % (37.0-47.0); HGB - HEMOGLOBIN 9.9 g/dL (12.0-16.0); LYMPHOCYTES % (AUTO) 20.6 %; MEAN CORPUSCULAR HEMOGLOBIN 21.9 pg (27.0-31.0); MEAN CORPUSCULAR HGB CONC 29.9 g/dL (32.0-36.0); MEAN CORPUSCULAR VOLUME 73.1 fL (81.0-99.0); MEAN PLATELET VOLUME 11.5 fL (7.9-10.8); MONOCYTES # (AUTO) 0.8 10^3/uL (0.0-1.0); MONOCYTES % (AUTO) 7.8 %; NEUTROPHILS # (AUTO) 6.9 10^3/uL (1.5-6.6); NEUTROPHILS % (AUTO) 70.6 %; PLT - PLATELET COUNT 231 10^3/uL (130-450); RED BLOOD COUNT 4.53 10^6/uL (4.20-5.40); RED CELL DISTRIBUTION WIDTH 19.4 % (12.0-15.0); WHITE BLOOD COUNT 9.7 x10^3/uL (4.8-10.8)
[2023-06-25 19:21] LABS: BILIRUBIN,URINE NEGATIVE (NEGATIVE); GLUCOSE, URINE (UA) NEGATIVE (NEGATIVE); KETONES,URINE (UA) NEGATIVE (NEGATIVE); LEUKOCYTE ESTERASE, URINE NEGATIVE (NEGATIVE); NITRITE,URINE NEGATIVE (NEGATIVE); OCCULT BLOOD,URINE TRACE-INTA (NEGATIVE); PH,URINE 6.5 PH (5.0-7.5); PROTEIN,URINE NEGATIVE (NEGATIVE); UROBILINOGEN,URINE 0.2 (NORMAL) E.U./dL (NORMAL)
[2023-06-25 19:25] LABS: THYROID STIMULATING HORMONE 2.25 uIU/mL (0.34-5.60)
[2023-06-25 19:27] LABS: CLARITY,URINE CLEAR (CLEAR); HCG UR QUAL NEGATIVE
[2023-06-25 19:28] LABS: ALBUMIN 4.3 g/dL (3.2-5.5); ALBUMIN/GLOBULIN RATIO 1.6 (1.0-2.2); ALKALINE PHOSPHATASE 42 IU/L (42-121); ALT ALANINE AMINOTRANSFERASE 8 IU/L (10-60); AST ASPARTATE AMINOTRANSFERASE 13 IU/L (10-42); BILIRUBIN,TOTAL 0.3 mg/dL (0.2-1.0); BUN - BLOOD UREA NITROGEN 11 mg/dL (6-20); CALCIUM 9.7 mg/dL (8.5-10.3); CARBON DIOXIDE - CO2 25 mmol/L (21-32); CHLORIDE 107 mmol/L (101-111); CK- CREATINE KINASE 47 IU/L (30-223); ETOH - ETHANOL < 10.0 mg/dL; GFR - MDRD 61 (>89); GLUCOSE 95 mg/dL (74-104); LIPASE 36 U/L (11-82); MAGNESIUM 1.8 mg/dL (1.7-2.3); POTASSIUM 3.9 mmol/L (3.5-4.5); SODIUM 138 mmol/L (135-145)
[2023-06-25 19:30] LABS: ACETAMINOPHEN < 0.1 ug/mL; SALICYLATE < 1.5 mg/dL
[2023-06-25 19:34] LABS: COCAINE SCREEN URINE NEGATIVE (NEGATIVE); THC CANNABINOID SCREEN, URINE NEGATIVE (NEGATIVE)
[2023-06-25 19:35] LABS: AMPHETAMINE SCREEN,URINE NEGATIVE (NEGATIVE); BARBITURATE SCREEN,UR NEGATIVE (NEGATIVE); BENZODIAZEPINES SCREEN, URINE NEGATIVE (NEGATIVE); BUPRENORPHINE SCREEN, URINE NEGATIVE (NEGATIVE); METHADONE SCREEN, URINE NEGATIVE (NEGATIVE); METHAMPHETAMINES SCREEN, URINE NEGATIVE (NEGATIVE); OPIATE SCREEN, URINE NEGATIVE (NEGATIVE); OXYCODONE SCREEN, URINE NEGATIVE (NEGATIVE); TRICYCLIC ANTIDEPRESSANT,URINE NEGATIVE (NEGATIVE)
--- NOTE | 2023-06-25 20:03 | ED Physician Documentation ---
PD HPI MHE - Stated complaint Stated Complaint: SI - Chief complaint Chief Complaint: MHE - History obtained from History obtained from: Patient - History of Present Illness Primary symptom: Suicidal ideation Pain level max: 0 Pain level now: 0 - Additional information Additional information: 38-year-old female presents to the emergency department with suicidal ideation. She states that she has had these feelings for some time. They come and go. Tonight she felt it more intensely than usual. Her plan was to potentially take pills. She does not feel suicidal currently. She has never seen a psychiatrist or therapist. She does have a primary care provider in [place]. She is not on any antidepressant medication. She states that she has cut herself in the past but never very deep. She has never attempted suicide. She lives at home with her and her 5-year-old child. She is originally from [place]. Review of Systems Constitutional: denies: Fever, Chills Nose: denies: Rhinorrhea / runny nose, Congestion Respiratory: denies: Cough GI: denies: Nausea, Vomiting, Diarrhea Skin: denies: Rash Musculoskeletal: denies: Neck pain, Back pain Neurologic: denies: Headache PD PAST MEDICAL HISTORY - Past Medical History Past Medical History: No - Past Surgical History Past Surgical History: Yes HEENT: Tonsil/Adenoidectomy - Present Medications Home Medications: Ambulatory Orders Medication Instructions Recorded Confirmed Acetaminophen [Acetaminophen Extra 500 mg PO Q8HR #30 tablet 02/04/22 Strength] Ibuprofen [Motrin] 1 tablet PO Q8H PRN #30 tablet 02/04/22 Dicyclomine [Bentyl] 1 - 2 tab PO QID PRN #20 cap 07/10/22 HYDROcod/ACETAM 5/325 [[place] 5/325] 1 ea PO Q6H PRN #14 tablet 01/17/23 Meloxicam [Mobic] 7.5 mg PO BID 10 Days #20 tablet 01/17/23 Esomeprazole Magnesium [Nexium] 40 mg PO DAILY #30 cap 06/25/23 Famotidine [Pepcid] 20 mg PO BID #60 tablet 06/25/23 Sucralfate [Carafate] 1 gm PO ACHS #60 tablet 06/25/23 - Allergies Allergies/Adverse Reactions: Allergies Allergy/AdvReac Type Severity Reaction Status Date / Time No Known Drug Allergies Allergy Verified 06/25/23 18:45 - Social History Does the pt smoke?: No Smoking Status: Never smoker Does the pt drink ETOH?: Yes Does the pt have substance abuse?: No - Immunizations Immunizations are current?: Yes - POLST Patient has POLST: No PD ED PE NORMAL - Vitals Vital signs reviewed: Yes - General General: Alert and oriented X 3, No acute distress - HEENT HEENT: Moist mucous membranes - Neck Neck: Supple, no meningeal sign - Cardiac Cardiac: RRR, Strong equal pulses - Respiratory Respiratory: No respiratory distress, Clear bilaterally - Abdomen Abdomen: Soft, Non tender, Non distended - Back Back: No spinal TTP - Derm Derm: Warm and dry - Extremities Extremities: No edema - Neuro Neuro: Alert and oriented X 3, eap consultant 2-12 intact, No motor deficit, No sensory deficit, Normal speech - Psych Psych: Normal mood, Normal affect Results - Vitals Vitals: Vital Signs - 24 hr 06/25/23 06/25/23 06/25/23 18:36 20:24 21:23 Temperature 37.2 C 36.9 C Heart Rate 94 92 Respiratory 15 16 16 Rate Blood Pressure 150/86 H 117/79 O2 Saturation 100 100 Oxygen O2 Source Room air - Labs Labs: Laboratory Tests 06/25/23 06/25/23 06/25/23 18:51 18:51 19:10 WBC 9.7 RBC 4.53 Hgb 9.9 L Hct 33.1 L MCV 73.1 L MCH 21.9 L MCHC 29.9 L RDW 19.4 H Plt Count 231 MPV 11.5 H Neut # (Auto) 6.9 H Lymph # (Auto) 2.0 Edgar # (Auto) 0.8 Eos # (Auto) 0.0 Baso # (Auto) 0.1 Absolute Nucleated RBC 0.00 Nucleated RBC % 0.0 Sodium 138 Potassium 3.9 Chloride 107 Carbon Dioxide 25 Anion Gap 6.0 BUN 11 Creatinine 1.0 Estimated GFR (MDRD) 61 L Glucose 95 Calcium 9.7 Magnesium 1.8 Total Bilirubin 0.3 AST 13 ALT 8 L Alkaline Phosphatase 42 Total Creatine Kinase 47 Total Protein 7.0 Albumin 4.3 Globulin 2.7 Albumin/Globulin Ratio 1.6 Lipase 36 TSH 2.25 Urine Color YELLOW Urine Clarity CLEAR Urine pH 6.5 Ur Specific [place] 1.020 Urine Protein NEGATIVE Urine Glucose (UA) NEGATIVE Urine Ketones NEGATIVE Urine Occult Blood TRACE-INTA Urine Nitrite NEGATIVE Urine Bilirubin NEGATIVE Urine Urobilinogen 0.2 (NORMAL) Ur Leukocyte Esterase NEGATIVE Ur Microscopic Review NOT INDICATED Urine Culture Comments NOT INDICATED Urine HCG, Qual NEGATIVE Salicylates < 1.5 Urine Opiates Screen NEGATIVE Ur Buprenorphine Scrn NEGATIVE Ur Oxycodone Screen NEGATIVE Urine Methadone Screen NEGATIVE Acetaminophen < 0.1 Ur Barbiturates Screen NEGATIVE Ur Tricyclics Screen NEGATIVE Ur Phencyclidine Scrn NEGATIVE Ur Amphetamine Screen NEGATIVE U Methamphetamines Scrn NEGATIVE U Benzodiazepines Scrn NEGATIVE Urine Cocaine Screen NEGATIVE U Cannabinoids Screen NEGATIVE Ur Drug Screen Comment CUTOFF CONC BELOW: Ethyl Alcohol < 10.0 PD Medical Decision Making - ED course Complexity details: reviewed results, re-evaluated patient, considered differential, d/w patient ED course: Patient with intermittent suicidal ideation. She does not currently feel acutely suicidal. Does not have a therapist or counselor. Does have a primary care provider. Is not currently on any antidepressants. She is medically clear for psychiatric care. Will consult telepsychiatry for further evaluation. After being in the emergency department, the patient felt she was no longer suicidal. She is able to contract for safety and is forward thinking. She states she will contact her PCP in the morning. She states that she would not hurt herself because she would not want her child to be abandoned. Patient also states that she has had epigastric abdominal pain, especially worse when she drinks coffee. Sounds consistent with possible gastritis versus early ulcer. Will place on Carafate, Pepcid and Nexium. Abdomen is soft, nontender nondistended. No significant lab abnormalities. She has chronic iron deficiency anemia that she is aware of, recommend that she talk to her doctor about potential iron infusions. She also have her vitamin D levels checked and further workup for her depression with her doctor. She is adamant that she will contact her doctor in the morning. Patient counseled regarding signs and symptoms for which I believe and urgent re-evaluation would be necessary. Patient with good understanding of and agreement to plan and is comfortable going home at this time This document was made in part using voice recognition software. While efforts are made to proofread this document, sound alike and grammatical errors may occur. Departure - Departure Disposition: 01 Home, Self Care Clinical Impression: Depression Qualifiers: Depression Type: unspecified Qualified Code(s): F32.A - Depression, unspecified Anemia Qualifiers: Anemia type: unspecified type Qualified Code(s): D64.9 - Anemia, unspecified Abdominal pain Qualifiers: Abdominal location: epigastric Qualified Code(s): R10.13 - Epigastric pain Gastritis Qualifiers: Gastritis type: unspecified gastritis Chronicity: acute Gastritis bleeding: without bleeding Qualified Code(s): K29.00 - Acute gastritis without bleeding Condition: Good Instructions: ED Depression Follow-Up: your,doctor tomorrow [Other] Prescriptions: Sucralfate [Carafate] 1 gm PO ACHS #60 tablet Esomeprazole Magnesium [Nexium] 40 mg PO DAILY #30 cap Famotidine [Pepcid] 20 mg PO BID #60 tablet Comments: Your laboratory testing does show that you have some mild anemia, this could be due to low iron. This should be followed up with your doctor. Otherwise the remainder of your laboratory testing does not show any significant abnormalities including your thyroid. Please continue your current medications at home. Please contact your doctor tomorrow to discuss your ongoing depression. They may want to start you on an antidepressant. If you are feeling suicidal or unsafe at home, you are welcome to return at any time for repeat evaluation and psychiatry consultation. You have elected to not stay for psychiatry consultation sameer. Crisis Line and is available to talk to someone [email or web address] is also available to chat with someone online if you prefer. There are also many resources on this website and apps for your phone to help with your mental health You can also text the word START to [phone] to chat with someome via text. Your prescription's were sent to [facility] in [place]. It is likely that you have gastritis which is an inflammation of your stomach lining. The Carafate will help to create an artificial lining in your stomach while it heals. The Pepcid will help to decrease the stomach acid and the Nexium will help to heal your stomach over the next 30 days. Please avoid spicy foods, fried foods, alcohol and caffeine. Your doctor may want to refer you for an endoscopy. Forms: PCP List Discharge Date/Time: 06/25/23 21:39
[2023-06-25 20:32] VITALS: BP 117/79
--- NOTE | 2023-06-25 20:45 | TELEPSYCH PHYS NOTE ---
[facility] Telepsych Consult Consult Date: 06/25/23 Name of Referring Provider:: Harsh Munoz MD Reason for Consult: Depression and SI - Assessment Language: Polish Tag Machine Operator Required: No Notes: Patient left AMA before provider was able to interview her. - Medication & Allergies Home Medications: Ambulatory Orders Medication Instructions Recorded Confirmed Acetaminophen [Acetaminophen Extra 500 mg PO Q8HR #30 tablet 02/04/22 Strength] Ibuprofen [Motrin] 1 tablet PO Q8H PRN #30 tablet 02/04/22 Dicyclomine [Bentyl] 1 - 2 tab PO QID PRN #20 cap 07/10/22 HYDROcod/ACETAM 5/325 [[place] 5/325] 1 ea PO Q6H PRN #14 tablet 01/17/23 Meloxicam [Mobic] 7.5 mg PO BID 10 Days #20 tablet 01/17/23 Esomeprazole Magnesium [Nexium] 40 mg PO DAILY #30 cap 06/25/23 Famotidine [Pepcid] 20 mg PO BID #60 tablet 06/25/23 Sucralfate [Carafate] 1 gm PO ACHS #60 tablet 06/25/23 Allergies/Adverse Reactions: Allergies Allergy/AdvReac Type Severity Reaction Status Date / Time No Known Drug Allergies Allergy Verified 06/25/23 18:45 - Surgical History HEENT: reports: Tonsil/Adenoidectomy
== END 2023-06-25 21:39 | disposition home or self-care (01) ==
LOC: ED 18:30
DX: F32.A Depression, unspecified (principal); K29.00 Acute gastritis without bleeding; D64.9 Anemia, unspecified
CPT/HCPCS: 36415; 80053; 80306; 80307; 80320; 80329; 81001; 81003; 81025; 82550; 83690; 83735; 84443; 85025; 87086; 99283

== ENCOUNTER 2023-09-03 22:55 | Emergency (ER) | payer OTHER ==
[2023-09-03 23:25] VITALS: BP 135/90; O2SAT 100
--- NOTE | 2023-09-04 00:11 | ED Physician Documentation ---
History of Present Illness - Stated complaint Stated Complaint: MOUTH PX - Chief complaint Chief Complaint: Heent - History obtained from History obtained from: Patient - Additonal information Additional information: 38yF presents to the ED with several days of intermittent L upper posterior tooth pain, worsening tonight and with yellowish thick discharge. She went to see a dentist a couple weeks ago and was told she had a dental infection in her wisdom tooth and the tooth would need to come out. denies fever, difficulty swallowing, trismus, or change in voice quality. no pain under the jaw PD PAST MEDICAL HISTORY - Past Medical History Past Medical History: No - Past Surgical History Past Surgical History: Yes HEENT: Tonsil/Adenoidectomy - Present Medications Home Medications: Ambulatory Orders Medication Instructions Recorded Confirmed norethindrone ac-eth estradioL 1 tab PO DAILY 09/03/23 09/03/23 [Microgestin 21 1-20 Tablet] Amox/Clav 875/125 [Augmentin 1 tablet PO Q12H 10 Days #10 tablet 09/04/23 875/125 Tab] - Allergies Allergies/Adverse Reactions: Allergies Allergy/AdvReac Type Severity Reaction Status Date / Time No Known Drug Allergies Allergy Verified 09/03/23 23:10 - Social History Does the pt smoke?: No Smoking Status: Never smoker Does the pt drink ETOH?: Yes Does the pt have substance abuse?: No - Immunizations Immunizations are current?: Yes - POLST Patient has POLST: No PD ED PE NORMAL - Vitals Vital signs reviewed: Yes - General General: Alert and oriented X 3, No acute distress, Well developed/nourished - HEENT HEENT: Atraumatic, PERRL, EOMI, Moist mucous membranes, Pharynx benign, Other (L upper posterior wisdom tooth ttp with surrounding erythema and mild increased swelling. no trismus or submental hardening) Results - Vitals Vitals: Vital Signs - 24 hr 09/03/23 23:05 Temperature 37.0 C Heart Rate 81 Respiratory 18 Rate Blood Pressure 135/90 H O2 Saturation 100 Oxygen O2 Source Room air PD Medical Decision Making - ED course ED course: 38yF presents with L upper back tooth pain X several days, worsening tonight, found to have mild dental infection. antibiotics prescribed and she will f/u with her emergency dentist. she declined pain meds, stating po tylenol at home is effective. return precautions given. Departure - Departure Disposition: Home, Self Care Clinical Impression: Dental infection Condition: Stable Instructions: ED Tooth Pain Prescriptions: Amox/Clav 875/125 [Augmentin 875/125 Tab] 1 tablet PO Q12H 10 Days #10 tablet Comments: You were seen in the emergency department for dental infection. Antibiotics [facility]. Please follow-up with your dentist and return to the emergency department if you have any new or worsening symptoms or other concerns.
== END 2023-09-04 00:20 | disposition home or self-care (01) ==
LOC: ED 22:55
DX: K04.7 Periapical abscess without sinus (principal)
CPT/HCPCS: 99282; 99283

== ENCOUNTER 2023-12-02 21:41 | Emergency (ER) | payer OTHER ==
[2023-12-02 22:14] LABS: BILIRUBIN,URINE NEGATIVE (NEGATIVE); GLUCOSE, URINE (UA) NEGATIVE (NEGATIVE); KETONES,URINE (UA) NEGATIVE (NEGATIVE); LEUKOCYTE ESTERASE, URINE NEGATIVE (NEGATIVE); NITRITE,URINE NEGATIVE (NEGATIVE); OCCULT BLOOD,URINE SMALL (NEGATIVE); PROTEIN,URINE TRACE mg/dL (NEGATIVE); UROBILINOGEN,URINE 0.2 (NORMAL) E.U./dL (NORMAL)
[2023-12-02 22:23] LABS: BACTERIA,URINE Few /HPF (None Seen); CLARITY,URINE CLEAR (CLEAR); HCG UR QUAL NEGATIVE; SQUAMOUS EPITHELIAL CELL,UR MANY Squamous (<= Few); WBC,URINE 0-3 /HPF (0-5)
[2023-12-02] MEDS: ACETAMINOPHEN 325 MG TABLET PO STA (23:01)
[2023-12-02] MEDS: ONDANSETRON ODT 4 MG TABLET TL STA (23:02)
[2023-12-02 23:15] LABS: B. PARAPERTUSSIS- RESP PCR PAN NOT DETECTED; B. PERTUSSIS- RESP PCR PANEL NOT DETECTED; C. PNEUMONIAE- RESP PCR PANEL NOT DETECTED; CORONAVIRUS 229E-RESP PCR NOT DETECTED; CORONAVIRUS HKU1-RESP PCR NOT DETECTED; CORONAVIRUS NL63-RESP PCR NOT DETECTED; CORONAVIRUS OC43-RESP PCR NOT DETECTED; HUMAN METAPNEUMOVIRUS NOT DETECTED; INFLUENZA A H3- RESP PCR PANEL DETECTED; INFLUENZA A- RESP PCR PANEL NOT DETECTED; INFLUENZA B - RESP PCR PANEL NOT DETECTED; M. PNEUMONIAE- RESP PCR PANEL NOT DETECTED; PARAINFLUENZA VIRUS 1 NOT DETECTED; PARAINFLUENZA VIRUS 2 NOT DETECTED; PARAINFLUENZA VIRUS 3 NOT DETECTED; PARAINFLUENZA VIRUS 4 NOT DETECTED; RHINOVIRUS/ENTEROVIRUS NOT DETECTED; RSV- RESP PCR PANEL NOT DETECTED; SARS-CoV-2 -RESP PCR PANEL NOT DETECTED
[2023-12-02] MEDS: OSELTAMIVIR 75 MG CAPSULE PO STA (23:55)
[2023-12-02] MEDS: IBUPROFEN 400 MG TABLET PO STA (23:55)
[2023-12-03 00:05] VITALS: BP 135/86; O2SAT 99
--- NOTE | 2023-12-03 11:09 | ED Physician Documentation ---
History of Present Illness - Stated complaint Stated Complaint: FEVER/NAUSEA - Chief complaint Chief Complaint: Fever - History obtained from History obtained from: Patient - Additonal information Additional information: HPI from patient. Patient c/o fever, generalized body aches/myalgias, sore throat, chills and diaphoresis. Symptoms started last night. Denies abdominal pain (ED equalizer operator note indicates patient was c/o abdominal pain but denies on my HPI/ROS), dyspnea, cough PD PAST MEDICAL HISTORY - Past Surgical History Past Surgical History: Yes HEENT: Tonsil/Adenoidectomy - Present Medications Home Medications: Ambulatory Orders Medication Instructions Recorded Confirmed norethindrone ac-eth estradioL 1 tab PO DAILY 09/03/23 09/03/23 [Microgestin 21 1-20 Tablet] Amox/Clav 875/125 [Augmentin 1 tablet PO Q12H 10 Days #10 tablet 09/04/23 875/125 Tab] Ondansetron Odt [Zofran Odt] 4 mg TL Q6H PRN #14 tablet 12/02/23 Oseltamivir [Tamiflu] 75 mg PO BID #9 cap 12/02/23 - Allergies Allergies/Adverse Reactions: Allergies Allergy/AdvReac Type Severity Reaction Status Date / Time No Known Drug Allergies Allergy Verified 09/03/23 23:10 - Social History Does the pt smoke?: No Smoking Status: Never smoker Does the pt drink ETOH?: Yes Does the pt have substance abuse?: No - Immunizations Immunizations are current?: Yes - POLST Patient has POLST: No PD ED PE NORMAL - Vitals Vital signs reviewed: Yes - General General: Alert and oriented X 3, No acute distress, Well developed/nourished - HEENT HEENT: Moist mucous membranes, Pharynx benign - Neck Neck: Supple, no meningeal sign - Cardiac Cardiac: RRR - Respiratory Respiratory: No respiratory distress, Clear bilaterally Results - Vitals Vitals: Vital Signs - 24 hr 12/02/23 12/03/23 21:45 00:02 Temperature 38.6 C H Heart Rate 116 H 95 Respiratory 24 16 Rate Blood Pressure 141/79 H 135/86 H O2 Saturation 100 99 Oxygen O2 Source Room air - Labs Labs: Laboratory Tests 12/02/23 12/02/23 12/02/23 21:28 22:10 22:10 Urine Color YELLOW Urine Clarity CLEAR Urine pH 7.0 Ur Specific [place] 1.020 Urine Protein TRACE Urine Glucose (UA) NEGATIVE Urine Ketones NEGATIVE Urine Occult Blood SMALL H Urine Nitrite NEGATIVE Urine Bilirubin NEGATIVE Urine Urobilinogen 0.2 (NORMAL) Ur Leukocyte Esterase NEGATIVE Urine RBC 6-10 H Urine WBC 0-3 Ur Squamous Epith Cells MANY Squamous H Urine Bacteria Few Ur Microscopic Review INDICATED Urine Culture Comments NOT INDICATED Urine HCG, Qual NEGATIVE Nasal Adenovirus (PCR) NOT DETECTED Nasal B. parapertussis DNA (PCR) NOT DETECTED Nasal Coronavir 229E PCR NOT DETECTED Nasal Coronavir HKU1 PCR NOT DETECTED Nasal Coronavir NL63 PCR NOT DETECTED Nasal Coronavir OC43 PCR NOT DETECTED Nasal Enterovir/Rhinovir PCR NOT DETECTED Nasal Influenza A H3 PCR DETECTED A Nasal Influenza B PCR NOT DETECTED Nasal Influenza A PCR NOT DETECTED Nasal Parainfluen 1 PCR NOT DETECTED Nasal Parainfluen 2 PCR NOT DETECTED Nasal Parainfluen 3 PCR NOT DETECTED Nasal Parainfluen 4 PCR NOT DETECTED Nasal RSV (PCR) NOT DETECTED Nasal B.pertussis DNA PCR NOT DETECTED Nasal C.pneumoniae (PCR) NOT DETECTED Frantz Human Metapneumo PCR NOT DETECTED Nasal M.pneumoniae (PCR) NOT DETECTED Nasal SARS-CoV-2 (PCR) NOT DETECTED PD Medical Decision Making - ED course Complexity details: reviewed results, considered differential, d/w patient ED course: Urine HCG negative, unremarkable UA. Respiratory PCR panel is positive for influenza A (which would account for signs/symptoms). Results d/w patient. She is given 75mg PO tamiflu and provided rx for 5-day course for same Departure - Departure Disposition: 01 Home, Self Care Clinical Impression: Influenza A Condition: Good Instructions: ED Flu, Medication: Tamiflu (Oseltamivir) Prescriptions: Oseltamivir [Tamiflu] 75 mg PO BID #9 cap Ondansetron Odt [Zofran Odt] 4 mg TL Q6H PRN #14 tablet PRN Reason: Nausea / Vomiting Comments: You tested positive for INFLUENZA A tonight ("the flu"). You were given the first dose of an anti-viral medication (oseltamivir) in the ER and I have electronically submitted a prescription for this medication to the [facility] pharmacy in [place] along with a prescription for ondansetron (antinausea medication, a dose of which you were also given in the ER tonight). Forms: PCP List Discharge Date/Time: 12/03/23 00:03
== END 2023-12-03 00:03 | disposition home or self-care (01) ==
LOC: EDUNIT# → ED 21:41
DX: J10.1 Influenza due to other identified influenza virus with other respiratory manifestations (principal)
CPT/HCPCS: 81001; 81025; 87633; 99283; 99284; A9270; Q0162; 81003; 87086